=== PATIENT | female | born 1990 | race Caucasian/White ===

== ENCOUNTER 2023-12-26 07:05 | Outpatient (CLI) | payer BC, SELFPAY ==
[2023-12-26 07:46] VITALS: BP 107/69; PULSE 87; RESP 16; TEMP 36.3; O2SAT 100
[2023-12-26] MEDS: Lactated Ringers 1,000 ML 125 ML IV (07:50)
[2023-12-26 07:55] VITALS: BMI 28.6
[2023-12-26 08:07] LABS: Hematocrit 32.1 % (37-47); Hemoglobin 10.6 g/dL (12.0-15.0); Mean Corpuscular Hgb 32.2 pg (27.0-32.0); Mean Corpuscular Volume 97.6 fL (81-99); Mean Platelet Vol. 11.3 fl (6.2-12.0); Platelet Count 191 K/mm3 (150-450); RBC Distribution Width CV 13.2 % (11.6-14.6); RBC Distribution Width SD 47.2 fl (35.1-43.9); Red Blood Count 3.29 M/mm3 (4.2-5.4); White Blood Count 6.3 K/mm3 (4.4-11.0)
--- NOTE | 2023-12-26 08:48 | OB.TRI.NOTE ---
HPI - General General Date of Service: 12/26/23 HPI Narrative MELINA CADET, is a 33 F @ 38 weeks who presents for ECV- pt was found to be transverse in the office- however today VERTEX on bedside ultrasound. PFSH PFSH Home Medications ?Medication ?Instructions ?Recorded ?Last Taken ?Type ferrous sulfate 325 mg (65 mg 325 mg PO QODAY 12/26/23 12/24/23 10:00 History iron) tablet (iron) 325 mg vits no.124-ferrous fum 1 tab PO DAILY 12/26/23 12/24/23 08:00 History 27 mg iron-folic acid 800 mcg 1 TAB tablet ( Vitamin) Allergy/AdvReac Type Severity Reaction Status Date / Time No Known Allergies Allergy Verified 12/26/23 08:05 NST FHR Rate Baby A Baseline: 130 Variability:: Moderate Accelerations:: None Decelerations:: Variable (had one variable- with cat 1 tracing after) NST Reactive:: Yes FHR Category:: Category I Uterine Activity:: no ctx
== END 2023-12-26 08:42 | disposition home or self-care (01) ==
LOC: WPOUT 07:22 → WP 07:36
PROVIDERS: PCP Nurse Practitioner Adult Health; Referring Provider Obstetrics & Gynecology; Visit Provider Obstetrics & Gynecology
DX: O32.1XX0 Maternal care for breech presentation, not applicable or unspecified (principal); Z3A.38 38 weeks gestation of pregnancy
CPT/HCPCS: 96365; 36415; 59025; 59050; 59412; 76815; 85027; 86850; 86900; 86901; 99221; J7120; G0378

== ENCOUNTER 2023-12-30 21:52 | Inpatient (IN) | payer BC, SELFPAY ==
[2023-12-30 17:16] VITALS: BP 112/67; PULSE 72; RESP 16; TEMP 36.9
[2023-12-30 17:17] VITALS: BMI 25.5
[2023-12-30] MEDS: Lactated Ringers 1,000 ML 125 ML IV (19:50)
[2023-12-30 21:06] VITALS: BP 119/77; PULSE 81; RESP 16; TEMP 36.1
--- NOTE | 2023-12-30 21:14 | OB.TRI.NOTE ---
HPI - General General Date of Admission: 12/30/23 Date of Service: 12/30/23 Chief Complaint: decreased movement HPI Narrative MELINA CADET, is a 33 F who presents 3 para 2 who presents at 38-4/7 weeks gestation complaining of decreased movement today. Since arrival she felt more movement and she feels some contractions but they are about a 3 out of 10 pain schulz. She had a small amount of brown mucus discharge earlier today. She denies any leaking of fluid. She has had good movement up until today. has been complicated date by gestational diabetes diet-controlled, anemia and advanced maternal age. She has a history of 2 previous vaginal deliveries without complication. Maternal Data Information Final STEVEN: 01[birth year] Gestational age: 38 4/7 PFSH PFSH Home Medications ?Medication ?Instructions ?Recorded ?Last Taken ?Type ferrous sulfate 325 mg (65 mg 325 mg PO QODAY 12/26/23 12/30/23 08:00 History iron) tablet (iron) 325 mg vits no.124-ferrous fum 1 tab PO DAILY 12/26/23 12/30/23 08:00 History 27 mg iron-folic acid 800 mcg 1 TAB tablet ( Vitamin) Allergy/AdvReac Type Severity Reaction Status Date / Time No Known Allergies Allergy Verified 12/30/23 17:19 Physical Exam Narrative Awake, alert, no acute distress Skin warm dry and intact Abdomen soft nontender nondistended gravid Brief ultrasound confirms vertex with head maternal left upper quadrant, appears to be complete breech. Grossly normal AFV. Cervix was 160 no presenting part, firm and mid position NST FHR Rate Baby A Baseline: 140 Variability:: Moderate Accelerations:: 15 x 15 Decelerations:: None NST Reactive:: Yes FHR Category:: Category I Uterine Activity:: Irregular contractions Assessment & Plan (1) Advanced maternal age during in third trimester: PLAN: Response and alternatives to attempted version were discussed with patient, her questions were answered to her satisfaction she desires to proceed. Consent was signed. Chyna Worthy CNM and Guy performed form the version. We attempted a forward roll, backward roll and then a forward roll. heart tones were stable in the 130s in between attempts. Patient tolerated the procedure moderately well. We cannot adequately move the breech to get the baby to vert to vtx. The version was then discontinued patient will remain on the external monitor for 1 hour and if no evidence of labor and heart tones are category 1 she may be discharged home. Risk benefits and alternatives to primary section should she enter labor return with ruptured membranes were reviewed. Questions were answered to her satisfaction she desires to proceed. Will schedule for at the 39 weeks at noon with . Was well for primary section and left spontaneous conversion to vertex. Keep scheduled office visit this week or return as needed. Kick counts. (2) High risk multigravida in third trimester: (3) 38 weeks gestation of : (4) Breech presentation, antepartum: (5) Decreased movement affecting management of in third trimester: PLAN: FHTs category 1 and appreciates normal FM now. Kick counts, return prb
[2023-12-30 21:48] LABS: ROM Internal Control Test YES-OK TO RESULT pt. (Internal QC)
[2023-12-30 21:49] LABS: ROM Patient Test POSITIVE (Negative); Record Kit Lot#, ROM+ K1866
[2023-12-30 22:03] VITALS: BP 119/77; PULSE 81; RESP 16; TEMP 36.1; O2SAT 97
[2023-12-30 22:14] LABS: Absolute Neutrophil Count 5.4 X10^3/uL (2.0-7.7); Basophil# 0.01 X10^3/uL; Basophil% 0.1 % (0-1); Eosinophil# 0.06 X10^3/uL; Eosinophils% 0.8 % (0-5); Hemoglobin 11.5 g/dL (12.0-15.0); Lymphocyte % 20.5 % (19-41); Mean Corp Hgb Conc 32.9 g/dL (32-36); Mean Corpuscular Hgb 32.2 pg (27.0-32.0); Monocyte# 0.73 X10^3/uL; Monocyte% 9.4 % (0-10); NRBC Flagged by Analyzer 0 % (0-5); Neutrophil # 5.37 X10^3/uL (2.7-7.7); Neutrophil % 68.8 % (47-70); Platelet Count 187 K/mm3 (150-450); RBC Distribution Width CV 13.2 % (11.6-14.6); RBC Distribution Width SD 46.8 fl (35.1-43.9); Red Blood Count 3.57 M/mm3 (4.2-5.4); White Blood Count 7.8 K/mm3 (4.4-11.0)
[2023-12-30] MEDS: Sodium Citrate/Citric Acid 30 ML UDC PO (22:14)
[2023-12-30] MEDS: Acetaminophen 500 MG Tablet 1000 MG PO (22:14)
--- NOTE | 2023-12-30 22:27 | PCM.HP.OB ---
HPI - General General Date of Admission: 12/30/23 Date of Service: 12/30/23 Chief Complaint: rupture of membranes HPI Narrative MELINA CADET, is a 33 F who presents at 38 4/7 for decreased Fm. Had not had VB/LOF. When got up to go to restroom before attempted ECV tonight, small fluid on pad. After version ROM confirmed. Still w/ irreg ctxs. Good FM. Maternal Data Information Final STEVEN: 01[birth year] Gestational age: 38 4/7 PFSH PFSH Home Medications ?Medication ?Instructions ?Recorded ?Last Taken ?Type ferrous sulfate 325 mg (65 mg 325 mg PO QODAY 12/26/23 12/30/23 08:00 History iron) tablet (iron) 325 mg vits no.124-ferrous fum 1 tab PO DAILY 12/26/23 12/30/23 08:00 History 27 mg iron-folic acid 800 mcg 1 TAB tablet ( Vitamin) Allergy/AdvReac Type Severity Reaction Status Date / Time No Known Allergies Allergy Verified 12/30/23 17:19 ROS Constitutional Constitutional: Denies fatigue, fever(s) or malaise Eyes Eyes: Denies change in vision ENT HEENT: Denies dizziness or headache(s) Cardiovascular Cardiovascular: Denies chest pain, dyspnea or lightheadedness Respiratory/Chest Respiratory/Chest: Denies cough or dyspnea Gastrointestinal Gastrointestinal: Denies change in bowel habits Genitourinary Genitourinary: Denies burning urination or genital lesions Integumentary Integumentary: Denies rash Neurologic Neurologic: Denies confusion, dizziness, headache(s), numbness or weakness Vital Signs Vital Signs Vital Signs: 12/30/23 17:16 12/30/23 17:16 12/30/23 17:16 Temperature Temperature Source Temporal Pulse Rate 72 Respiratory Rate Blood Pressure 112/67 Blood Pressure Mean BP Systolic 112 BP Diastolic 67 Blood Pressure Source Blood Pressure Position Blood Pressure Location Pulse Ox Oxygen Delivery Method 12/30/23 17:16 12/30/23 17:16 12/30/23 21:06 Temperature 98.5 F Temperature Source Pulse Rate Respiratory Rate 16 Blood Pressure 119/77 Blood Pressure Mean BP Systolic 119 BP Diastolic 77 Blood Pressure Source Blood Pressure Position Blood Pressure Location Pulse Ox Oxygen Delivery Method 12/30/23 21:06 12/30/23 21:06 12/30/23 21:06 Temperature Temperature Source Temporal Pulse Rate 81 Respiratory Rate 16 Blood Pressure Blood Pressure Mean BP Systolic BP Diastolic Blood Pressure Source Blood Pressure Position Blood Pressure Location Pulse Ox Oxygen Delivery Method 12/30/23 21:06 12/30/23 22:03 Temperature 96.9 F L 96.9 F L Temperature Source Temporal Pulse Rate 81 Respiratory Rate 16 Blood Pressure 119/77 Blood Pressure Mean 91 BP Systolic BP Diastolic Blood Pressure Source Monitor Blood Pressure Position Semi-Fowlers Blood Pressure Location Left Arm Pulse Ox 97 Oxygen Delivery Method Room Air Weight Weight: 67.5 kg Body Mass Index (BMI) 25.5 Physical Exam Const alert and no apparent distress General Appearance: cooperative HEENT normocephalic Resp normal respiratory effort Cardio regular rate GI soft to palpation GI Narrative: gravid, nontender, appropriate for gestational age Extremity no calf tenderness General Extremity: edema Skin no wounds Rashes: No rashes noted Psych activity/motor behavior normal Labs Labs Labs: Blood Type AB POSITIVE Antibody Screen NEGATIVE Hct 35.0 % (37-47) L Hgb 11.5 g/dL (12.0-15.0) L Syphilis Total Ab Pending Assessment & Plan (1) Breech presentation, antepartum: PLAN: R/B/A to primary c/s for breech reviewed, questions answered and she desires to proceed. (2) 38 weeks gestation of : (3) High risk multigravida in third trimester: (4) Advanced maternal age during in third trimester: (5) PROM (premature rupture of membranes):
[2023-12-30] MEDS: Cefazolin 2 GM in 0.9% Normal Saline (100mL Bag) 100 ML IV (22:30)
[2023-12-30 22:43] LABS: Syphilis Antibodies Non-reactive
[2023-12-30 22:44] LABS: Bedside Glucose 92 mg/dL (74-106)
--- NOTE | 2023-12-30 23:26 | OP.PCM_ITS ---
Maternal Data Information Final STEVEN: [birth year] Gestational age: 38 4/7 Details Operative Information Date of Procedure: 12/30/23 Pre-Operative Diagnosis: breech, PROM Post-Operative Diagnosis: same Classification: JIMY Procedure Type: low transverse skoog operator #1: Anjali Pires Type of Anesthesia: Spinal Anesthesiologist: Freddy Kenney Special Medications: duramorph Antibiotic Given: Ancef 2 grams IV x1 Drain: Duncan to straight drain Estimated Blood Loss: 600 Fluids Replaced: 1100 Procedure Start Time: 22:48 Procedure Stop Time: 22:51 Time of Delivery: 23:22 Findings Description of Procedure: The patient was taken to the operating room. She was prepped and draped in the dorsal supine position with a leftward tilt. A Pfannenstiel skin incision was made approximately 2 cm above the symphysis pubis and carried through to underlying layer fascia with the scalpel. The fascia was incised incised in the midline and extended laterally with blunt dissection. The fascia was dissected off the rectus muscles with blunt dissection. The rectus muscles were in the midline and the peritoneum was entered bluntly. The peritoneal incision was stretched and the bladder blade was placed. The uterine incision was made in a low transverse fashion with the scalpel and extended superiorly and inferiorly with blunt dissection. The amniotic membranes were ruptured bluntly and clear amniotic fluid returned. 1 foot was present in 1 leg with folded up. I attempted to grab the breech but was able to grab the flexed the leg and extended so both legs were brought through the uterine incision. The was brought to back up and with fundal pressure on the vertex the was delivered to the arms which were both nuchal and behind the head. The was manipulated to bring the arms out individually and there is a loose nuchal cord x 1 that the head delivered through. The head delivered very easily with fundal pressure and gentle traction on the maxilla. The mouth and nares were bulb suctioned. The cord was clamped and cut as the infant was stimulated. Cord clamping was not delayed. The was handed off to the waiting nursing staff. The placenta was delivered with fundal massage and gentle traction in the standard fashion. The uterus was exteriorized and cleared of all clots and debris. The cervix was dilated with a ring forcep. The uterine incision was closed with #1 Vicryl in a running locked fashion. A second layer of the same suture was used in an imbricating fashion to help obtain hemostasis. Several [id number] #1 Vicryl sutures were needed in the midportion of the uterine incision for a bleeding sinus. The incision was examined and was found to be hemostatic. The uterus was placed back into the peritoneal cavity and hemostasis was again confirmed. Some Yesika was placed over the uterine incision. The rectus muscles were examined and any bleeding was Bovie cauterized. The parietal peritoneum and rectus muscles were closed en bloc with an 0 Vicryl running suture. Some Yesika was placed over the rectus muscles. The rectus fascia was examined and any bleeding was Bovie cauterized and the rectus fascia was closed with 1 Vicryl suture in a running standard fashion. The subcutaneous tissue was examining and any bleeding was Bovie cauterized. Some Yesika was placed in the subcutaneous tissue. The subcutaneous tissue was reapproximated with 3-0 Vicryl suture. The skin was closed in a subcuticular fashion with Monocryl suture. I performed the entire procedure with assistance. All sponge, lap, and needle counts were correct. The patient was taken to her room for recovery in a stable condition. Presentation: Positive for Footling Breech Amniotic Membrane Rupture Type: Spontaneous Amniotic Fluid Description: Clear Placental Delivery Description: Expressed Placenta Disposition: [facility] Cord Vessel Description: 3 Vessels Cord Entanglement: Around neck x 1, loose Nuchal Cord Compression: Without compression Cord Gases: ABG and VBG A Gender: Female (5 lb 8 oz) (1 minute): 2 (5 minute): 9 Delayed Cord Clamping: No Complications Complications: none Admit VTE Documentation VTE Present on Admission: No VTE Mechan Device Prophylaxis: SCD's VTE Pharm Prophylaxis Ordered: Yes
[2023-12-30 23:40] VITALS: BP 119/77; BP 94/62; PULSE 98; RESP 16; TEMP 36.1; O2SAT 97
[2023-12-30 23:45] VITALS: BP 105/54; BP 119/77; PULSE 101; RESP 16; O2SAT 97
[2023-12-30] MEDS: Oxytocin 15 Units/NS 250ml 15 UNITS/250 ML IV.SOLN 83 UNITS IV (23:58)
[2023-12-31] VITALS (17 sets, daily range): BP systolic 86–119; BP diastolic 67–77; PULSE 69–91; RESP 16–20; TEMP 36.2–36.7; O2SAT 96–100
[2023-12-31] MEDS: Ketorolac 30 MG/ML Syringe IV ×4 (00:28→18:33)
[2023-12-31 00:35] LABS: Bedside Glucose 110 mg/dL (74-106)
[2023-12-31] MEDS: Lactated Ringers 1,000 ML 100 ML IV (02:59)
[2023-12-31] MEDS: Acetaminophen 500 MG Tablet 1000 MG PO ×4 (04:22→23:06)
[2023-12-31] MEDS: Cefazolin 1 GM/50 ML BAG IV ×2 (06:35→14:58)
--- NOTE | 2023-12-31 08:59 | PN.OBGYN_ITS ---
Subjective Subjective Doing well. Ambulating and voiding without difficulty. Mild lochia. Breast feeding. Pain managed. Bandage and steris changed due to blood saturation. No active bleeding noted Objective Data Objective Data Vital Signs: Vital Signs Temp Pulse Resp BP Pulse Ox O2 Del Method 97.2 F L 72 16 100/72 100 Room Air 12/31/23 08:02 12/31/23 08:02 12/31/23 08:02 12/31/23 08:02 12/31/23 08:02 12/31/23 08:02 Oxygen Delivery Method Room Air Weight: 67.5 kg Body Mass Index (BMI) 25.5 Intake & Output: Intake and Output for Last 24 Hours 12/29/23 12/30/23 12/31/23 23:59 23:59 23:59 Intake Total 1110.0 / 1110.0 818.33 / 818.33 Output Total 600 / 600 200 / 200 Balance 510.0 / 510.0 618.33 / 618.33 Lab / Micro Data 12/30/23 19:55 Labs: Laboratory Results - last 24 hr 12/30/23 19:55: WBC 7.8, RBC 3.57 L, Hgb 11.5 L, Hct 35.0 L, MCV 98.0, MCH 32.2 H, MCHC 32.9, RDW Std Deviation 46.8 H, RDW Coeff of Uvaldo 13.2, Plt Count 187, M PV 13.0 H, Immature Gran % (Auto) 0.400, Neut % (Auto) 68.8, Lymph % (Auto) 20.5, [place] % (Auto) 9.4, Eos % (Auto) 0.8, Baso % (Auto) 0.1, Absolute Neuts (auto) 5.4, Absolute Lymphs (auto) 1.60, Nucleated RBC % 0, Syphilis Total Ab Non-reactive, Blood Type AB POSITIVE, Antibody Screen NEGATIVE 12/30/23 21:32: Vag Amniotic Fld Detect POSITIVE H 12/30/23 22:09: POC Glucose 92 12/31/23 00:09: POC Glucose 110 H ROS Constitutional Constitutional: Denies fatigue, fever(s) or malaise Eyes Eyes: Denies change in vision ENT HEENT: Denies dizziness or headache(s) Cardiovascular Cardiovascular: Denies chest pain, dyspnea or lightheadedness Respiratory/Chest Respiratory/Chest: Denies cough or dyspnea Gastrointestinal Gastrointestinal: Denies change in bowel habits Genitourinary Genitourinary: Denies burning urination or genital lesions Integumentary Integumentary: Denies rash Neurologic Neurologic: Denies confusion, dizziness, headache(s), numbness or weakness Physical Exam Const alert General Appearance: cooperative GI GI Narrative: soft, moderate distention, fundus firm, appropriately tender. Assessment & Plan (1) Breech presentation, antepartum: QUALIFIERS: Fetus number: single or unspecified fetus Qualified Code(s): O32.1XX0 - Maternal care for breech presentation, not applicable or unspecified (2) PROM (premature rupture of membranes): QUALIFIERS: PROM onset of labor timing: unspecified duration between rupture of membranes and onset of labor PROM gestational age: full term Qualified Code(s): O42.92 - Full-term premature rupture of membranes, unspecified as to length of time between rupture and onset of labor (3) S/P : PLAN: Plan anticipate discharge tomorrow
[2023-12-31] MEDS: Senna/Docusate Sodium 1 Tablet PO (10:32)
[2023-12-31] MEDS: Enoxaparin 40 MG/0.4 ML Syringe SC (12:34)
[2023-12-31] MEDS: 0.9% Saline Lock 10 ML Syringe IV ×3 (12:37→18:33)
--- NOTE | 2023-12-31 14:55 | NURSING ---
student cgarting reviewed
--- NOTE | 2023-12-31 14:58 | NURSING ---
student charting reviewed
[2023-12-31] MEDS: SimETHICONE 80 MG Chewable Tablet PO (18:33)
[2024-01-01 02:56] VITALS: BP 112/73; PULSE 78; RESP 16; TEMP 36.4; O2SAT 98
[2024-01-01] MEDS: Ondansetron 8 MG Tablet PO (05:40)
[2024-01-01] MEDS: Acetaminophen 500 MG Tablet 1000 MG PO ×2 (05:41→11:28)
[2024-01-01] MEDS: Ibuprofen 600 MG Tablet PO ×2 (06:44→11:28)
--- NOTE | 2024-01-01 07:47 | PCM.PN.OB ---
Subjective Subjective Doing well. Ambulating and voiding without difficulty. Mild lochia. Breast feeding. Pain managed. Objective Data Objective Data Vital Signs: Vital Signs Temp Pulse Resp BP Pulse Ox O2 Del Method 97.5 F L 78 16 112/73 98 Room Air 01/01/24 02:56 01/01/24 02:56 01/01/24 02:56 01/01/24 02:56 01/01/24 02:56 01/01/24 02:56 Oxygen Delivery Method Room Air Weight: 67.5 kg Body Mass Index (BMI) 25.5 Intake & Output: Intake and Output for Last 24 Hours 12/30/23 12/31/23 01/01/24 23:59 23:59 23:59 Intake Total 1110.0 / 1110.0 868.33 / 868.33 Output Total 600 / 600 850 / 850 Balance 510.0 / 510.0 18.33 / 18.33 Lab / Micro Data 12/30/23 19:55 ROS Constitutional Constitutional: Denies fatigue, fever(s) or malaise Eyes Eyes: Denies change in vision ENT HEENT: Denies dizziness or headache(s) Cardiovascular Cardiovascular: Denies chest pain, dyspnea or lightheadedness Respiratory/Chest Respiratory/Chest: Denies cough or dyspnea Gastrointestinal Gastrointestinal: Denies change in bowel habits Genitourinary Genitourinary: Denies burning urination or genital lesions Integumentary Integumentary: Denies rash Neurologic Neurologic: Denies confusion, dizziness, headache(s), numbness or weakness Physical Exam Const alert General Appearance: cooperative GI GI Narrative: soft, moderate distention, fundus firm, appropriately tender. Abdominal bandage clean dry and intact Assessment & Plan (1) S/P : (2) PROM (premature rupture of membranes): QUALIFIERS: PROM onset of labor timing: unspecified duration between rupture of membranes and onset of labor PROM gestational age: full term Qualified Code(s): O42.92 - Full-term premature rupture of membranes, unspecified as to length of time between rupture and onset of labor (3) Breech presentation, antepartum: QUALIFIERS: Fetus number: single or unspecified fetus Qualified Code(s): O32.1XX0 - Maternal care for breech presentation, not applicable or unspecified
--- NOTE | 2024-01-01 07:50 | PCM.DC.SUM ---
Providers Date of Admission: 12/30/23 Date of Discharge: 01/01/24 Primary Care Physician: VANESSA MAYS Reason For Visit: SCHEDULED SECTION Diagnosis Discharge Diagnosis (1) S/P : Status: Acute Code(s): Z98.891 - History of uterine scar from previous surgery (2) PROM (premature rupture of membranes): Status: Acute Code(s): O42.90 - Premature rupture of membranes, unspecified as to length of time between rupture and onset of labor, unspecified weeks of gestation Qualifiers: PROM onset of labor timing: unspecified duration between rupture of membranes and onset of labor PROM gestational age: full term Qualified Code(s): O42.92 - Full-term premature rupture of membranes, unspecified as to length of time between rupture and onset of labor (3) Breech presentation, antepartum: Status: Acute Code(s): O32.1XX0 - Maternal care for breech presentation, not applicable or unspecified Qualifiers: Fetus number: single or unspecified fetus Qualified Code(s): O32.1XX0 - Maternal care for breech presentation, not applicable or unspecified Plan anticipate discharge tomorrow Medications at Discharge Home Medications ferrous sulfate 325 mg (65 mg iron) tablet (iron) 325 mg PO QODAY 12/26/23 vits no.124-ferrous fum 27 mg iron-folic acid 800 mcg tablet ( Vitamin) 1 tab PO DAILY 12/26/23 Hospital Course Operations section Procedures None Summary of Care Provided Minutes Spent on Discharge: 22 Hospital Course: Primary . PROM breech presentation. Uncomplicated . Breast feeding Physical Exam Const alert General Appearance: cooperative GI GI Narrative: soft, moderate distention, fundus firm, appropriately tender. Abdominal bandage clean dry and intact Weight / BMI Weight Weight: 67.5 kg Body Mass Index (BMI) 25.5 ABG / Lab / Microbiology Data 12/30/23 19:55 D/C Instructions Discharge Diet: No restrictions May resume sexual activity in: 4-6 weeks Lifting Restrictions: 20 pounds Additional Activity Instructions: Nothing in the vagina for 4-6 weeks. You may return to work/school in 6 weeks. Call your doctor if your incision/area has: Continuous Slow Oozing, Sudden Increased Bleeding, Increased Pain/ Swelling, Increased Redness and Foul Smelling Discharge Call your doctor if you observe: Fever of 101 or Higher and Using more than 1 pad per hour (for 2 hours) Suture Line Care: Avoid Pulling/Pushing and Avoid Pinching/Bending Cleanse incision/area with: Keep Dressing Clean & Dry Please Follow Up With: Daysi Vincent MD When: Call to make an appointment for an incision check in 1-2 [phone]. You will need a post check in 6 weeks. Meaningful Use Info Meaningful Use Meaningful Use Diagnoses (Choose all that apply): None applicable Ischemic Stroke Statin Dosing Therapy Reference: STATIN DOSE THERAPY REFERENCE: * Patients > 75 years receive moderate or high dose statin therapy. * Patients 75 years or YOUNGER should receive HIGH intensity statin dose unless contraindicated. You will be required to document reason for non-treatment if statin daily dose does not meet guidelines. HIGH DOSE STATIN THERAPY DAILY Atorvastatin > than or = to 40 mg Rosuvastatin > than or = to 20 mg Amlodipine + Atorvastatin > than or = to 2.5/40 mg Ezetimibe + Simvastatin 10/80 mg Simvastatin 80mg Discharge Plan Admission Admit Date/Time: 12/30/23 21:52 Attending Provider: Daysi Vincent Primary Care Provider: TRAVON BLANK Discharge Orders/Prescriptions Prescriptions: No Action ferrous sulfate [iron] 325 mg (65 mg iron) tablet 325 mg PO QODAY Vitamin 27 mg iron- 800 mcg tablet 1 tab PO DAILY Referrals / Follow Up: TRAVON BLANK CRNP [Primary Care Provider] -
[2024-01-01 09:26] VITALS: BP 105/76; PULSE 75; RESP 16; TEMP 36.5; O2SAT 98
[2024-01-01] MEDS: Senna/Docusate Sodium 1 Tablet PO (09:41)
[2024-01-01] MEDS: Enoxaparin 40 MG/0.4 ML Syringe SC (12:58)
[2024-01-01 13:01] VITALS: BP 104/70; PULSE 82; RESP 14; TEMP 36.4; O2SAT 97
== END 2024-01-01 15:30 | disposition home or self-care (01) | DRG 788 ==
LOC: WPOUT 22:03 → WP 22:03
PROVIDERS: Advanced Practice Midwife; Admitting Provider Obstetrics & Gynecology; PCP Nurse Practitioner Adult Health; Referring Provider Obstetrics & Gynecology; Visit Provider Obstetrics & Gynecology
DX: O32.8XX0 Maternal care for other malpresentation of fetus, not applicable or unspecified (principal); O36.8130 Decreased fetal movements, third trimester, not applicable or unspecified; O42.02 Full-term premature rupture of membranes, onset of labor within 24 hours of rupture; O69.81X0 Labor and delivery complicated by cord around neck, without compression, not applicable or unspecified; Z37.0 Single live birth; Z3A.38 38 weeks gestation of pregnancy
CPT/HCPCS: 59025; 59050; 76815; 82962; 84112; 85025; 86780; 86850; 86900; 86901; 99221; J7120; A4216; G0378; J2405